=== PATIENT | female | born 1940 | race Caucasian/White ===

== ENCOUNTER 2018-02-18 16:15 | Observation (INO) | payer MEDICARE, MEDICAID, SELFPAY ==
[2018-02-18 16:27] VITALS: BMI 21.2
--- NOTE | 2018-02-18 16:33 | SW/DCPLANNER ---
Received phone call from Dr Munroe office stating patient was currently in office and would need placement. Patient is currently living on [address] with her son and nephew (nephew has stated that neither are suppose to be staying in the house). Nephew has stated in the MD office to me that patient is not capable of taking care of herself and that every opportunity she has to leave the house she does without family members knowing and has frequent moments of not being able to make it to the bathroom. Patient did have a fall last week when she took off without family knowing. Patient has stated in the office that she does agree to go somewhere because her family members can no longer live with her. Patient does have Medicaid at this time...I have faxed patient information to [facility], [facility] in [facility], and [facility].....[place] does not have any LTC beds available at this time. I will follow up with facilities in the AM.
[2018-02-18 16:57] VITALS: O2SAT 98
[2018-02-18 17:24] VITALS: BP 133/71; PULSE 76; RESP 18; TEMP 36.4; O2SAT 95
--- NOTE | 2018-02-18 17:49 | XR_ITS ---
XR chest 2V HISTORY: History of lung cancer with history of pulmonary nodules, shortness of breath ITS.REASON: hx lung cancer ORDERING PHYSICIAN: Yossi Munroe MD PATIENT AGE: 77 years COMPARISON: 08/20/2017 FINDINGS: Unremarkable heart size. Chronic coarsening of bronchovascular markings with prominence of the right hilum. No lobar consolidation or collapse. Calcified granuloma is present in the left lower lobe. No acute bony anomalies IMPRESSION: Chronic coarsening of the bronchovascular markings consistent with chronic bronchitis. There is some prominence of the right hilum inferiorly slightly more so than when compared to the previous exam. Developing hilar mass is a consideration. Consider chest CT with contrast this patient with given history of lung cancer
[2018-02-18 18:25] LABS: Basophils # 0.1 K/mm3 (0-0.2); Basophils % 0.7 % (0.1-2.0); Eosinophils # 0.2 K/mm3 (0.0-0.4); Eosinophils % 2.2 % (0.1-12.0); Hematocrit 47.5 % (37.0-47.0); Lymphocytes # 1.8 K/mm3 (0.7-4.5); Lymphocytes % 24.3 K/mm3 (10-50); Mean Corpuscular HGB Conc 31.7 g/dL (31.8-35.4); Mean Corpuscular Hemoglobin 26.4 pg (27.0-31.2); Mean Corpuscular Volume 83.4 fl (81-99); Monocytes # 0.6 K/mm3 (0.1-1.0); Monocytes % 7.6 % (1.7-9.3); Neutrophils # 4.8 K/mm3 (1.8-7.8); Neutrophils % 65.2 % (37.0-80.0); Platelet Count 148 K/mm3 (142-424); White Blood Count 7.3 K/mm3 (4.8-10.8)
[2018-02-18 18:40] LABS: Alanine Aminotransferase 8 U/L (12-78); Albumin/Globulin Ratio 0.7 (1.1-1.8); Alkaline Phosphatase 109 U/L (46-116); Anion Gap 9.3 mEq/L (5-15); Aspartate Amino Transferase 56 U/L (15-37); Bilirubin,Total 0.4 mg/dL (0.2-1.0); Blood Urea Nitrogen 15 mg/dL (7-18); Calcium 8.8 mg/dL (8.5-10.1); Carbon Dioxide 30 mmol/L (21.0-32.0); Chloride 102 mmol/L (98-107); Creatinine Clearance Estimated 47 mL/min (0-300); Creatinine,Serum 0.66 mg/dL (0.55-1.02); Estimated Glomerular Filt Rate 87 ml/min (>60); GFR (African American) 106 ML/MIN (>60); Globulin 4.2 gm/dl (1.3-3.2); Glucose 90 mg/dL (74-106); Potassium 4.3 mmoL/L (3.5-5.1); Sodium 137 mmol/L (136-145); Thyroid Stimulating Hormone 1.76 uIU/ml (0.358-3.740); Total Protein,Serum 7.2 gm/dL (6.4-8.2)
--- NOTE | 2018-02-18 19:25 | PC.NURSE ---
report given to kristy
[2018-02-18 19:37] VITALS: PULSE 71
--- NOTE | 2018-02-18 19:38 | PC.NURSE ---
report given to Loren michelle rn. alarm set and checked
[2018-02-18 19:56] LABS: Microscopic, Urine URINE MICROSCOPIC (MICROSCOPIC)
[2018-02-18 19:57] LABS: Appearance,Urine SL CLOUDY (Clear); Bilirubin,Urine Negative (Negative); Blood, Urine Negative (Negative); Color,Urine YELLOW (Yellow); Glucose,Urine (UA) Negative (Negative); Ketones,Urine Negative (Negative); Leukocyte Esterase,Urine Negative (Negative); Nitrate,Urine Negative (Negative); Protein,Urine Negative (Negative); Specific Gravity, Urine <= 1.005 (1.005-1.030); Urobilinogen,Urine 0.2 EU/dl (0.2)
[2018-02-18 20:00] VITALS: BP 104/49; PULSE 58; RESP 22; TEMP 36.5; O2SAT 93
[2018-02-18 20:03] LABS: Bacteria,Urine 4+ /lpf; WBC,Urine Occasional #/hpf (0-3)
[2018-02-19] VITALS (8 sets, daily range): BP systolic 111–129; BP diastolic 50–59; PULSE 76–93; RESP 16–22; TEMP 36.4–37.1; O2SAT 94–96
--- NOTE | 2018-02-19 02:56 | PC.NURSE ---
PT RESTED WELL THIS SHIFT. NO C/O OF PAIN. PT REMAINS CONFUSED. VSS. MEDS ADMIN PER JAN. NO OTHER CONCERNS AT THIS TIME, WILL CONT. TO MONITOR.
--- NOTE | 2018-02-19 07:29 | HMH.PHAVTE ---
[facility] VTE Monitoring - Patient Demographics Admission date: 02/18/18 Report Date: 02/19/18 Time: 07:29 Allergies/Adverse Reactions: Patient Allergies Penicillin Allergy (Intermediate, Uncoded 11/13/17 14:27) I-RASH EGGS (FOOD) Allergy (Unknown, Uncoded 11/13/17 14:27) NA-NAUSEA/VOMITING SULFA (SULFONAMIDE) Allergy (Unknown, Uncoded 11/13/17 14:27) NA-NAUSEA/VOMITING Height: 1.7 m Weight: 61.405 kg - VTE Risk Labs: VTE Related Lab Results Hgb 15.0 g/dL (12.2-16.2) 02/18/18 18:00 Hct 47.5 % (37.0-47.0) H 02/18/18 18:00 Plt Count 148 K/mm3 (142-424) 02/18/18 18:00 BUN 15 mg/dL (7-18) 02/18/18 18:00 Creatinine 0.66 mg/dL (0.55-1.02) 02/18/18 18:00 Estimated Creat Clear 47 mL/min (0-300) 02/18/18 18:00 VTE Score: 5 VTE Risk Level: Low Risk Clinical Trial Participant: No - Prophylaxis VTE Prophylaxis Ordered?: Yes Types of VTE Prophylaxis: TEDS Knee High Location of Applied Device: Bilateral Lower Extremeties
--- NOTE | 2018-02-19 07:32 | PC.NURSE ---
REPORT GIVEN TO Alfa HOLDER W/C
--- NOTE | 2018-02-19 07:43 | PC.NURSE ---
REPORT GIVEN TO Olu SHARIF RN
--- NOTE | 2018-02-19 09:28 | HMH.ACPN2 ---
Internal Medicine - PN: Subj *Date: 02/19/18 *Time: 09:28 Interval history: Basically Ms. Ramos looks like a new person today. She seems alert and oriented. She knows my name. She expresses reluctance to leave her home situation (even though it is not good). Her blood work looks good. Exam Vital signs and Labs for Last 24 Hours: Temp Pulse Resp BP Pulse Ox 97.7 F 87 20 118/59 94 L 02/19/18 08:00 02/19/18 08:00 02/19/18 08:00 02/19/18 08:00 02/19/18 08:00 Laboratory Results - last 24 hr 02/18/18 17:47: Urine Color Yellow, Urine Appearance Sl cloudy, Urine pH 6.0, Ur Specific [place] <= 1.005, Urine Protein Negative, Urine Glucose (UA) Negative, Urine Ketones Negative, Urine Blood Negative, Urine Nitrate Negative, Urine Bilirubin Negative, Urine Urobilinogen 0.2, Ur Leukocyte Esterase Negative, Urine WBC Occasional, Ur Squamous Epith Cells 3-5, Urine Bacteria 4+ 02/18/18 18:00: WBC 7.3, RBC 5.70 H, Hgb 15.0, Hct 47.5 H, MCV 83.4, MCH 26.4 L, MCHC 31.7 L, RDW 14.0, Plt Count 148, MPV 11.0 H, Neut % (Auto) 65.2, Lymph % (Auto) 24.3, [place] % (Auto) 7.6, Eos % (Auto) 2.2, Baso % (Auto) 0.7, Neut # (Auto) 4.8, Lymph # (Auto) 1.8, [place] # (Auto) 0.6, Eos # (Auto) 0.2, Baso # (Auto) 0.1 02/18/18 18:00: Sodium 137, Potassium 4.3, Chloride 102, Carbon Dioxide 30, Anion Gap 9.3, BUN 15, Creatinine 0.66, Estimated Creat Clear 47, Estimated GFR 87, Est GFR ( Amer) 106, Glucose 90, Calcium 8.8, Total Bilirubin 0.4, AST 56 H, ALT 8 L, Alkaline Phosphatase 109, Total Protein 7.2, Albumin 3.0 L, Globulin 4.2 H, Albumin/Globulin Ratio 0.7 L, TSH 1.76 Laboratory Tests 02/18/18 02/18/18 18:00 18:00 WBC 7.3 Sodium 137 Potassium 4.3 Chloride 102 BUN 15 Creatinine 0.66 I & O for Last 24 hours: Intake & Output 02/16/18 02/17/18 02/18/18 02/19/18 11:59 11:59 11:59 11:59 Intake Total 840 / 840 Balance 840 / 840 Weight 135 lb 6 oz Microbiology Reports for the Last 24 Hours: Microbiology 02/18/18 17:47 Urine,Clean Catch Urine Culture - Preliminary - Constitutional no acute distress - *Routine HEENT Exam Eye: Present: PERRL ENT: Present: mucous membranes moist - *Routine Respiratory Exam Present: decreased breath sounds Comments: Scattered rhonchi and wheezes, more prominent in the right base. 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 Continue treatment. She really needs placemnent. Case management involved.
--- NOTE | 2018-02-19 09:31 | P.PN_ITS ---
Internal Medicine - PN: Subj *Date: 02/19/18 *Time: 09:28 Interval history: Basically Ms. Ramos looks like a new person today. She seems alert and oriented. She knows my name. She expresses reluctance to leave her home situation (even though it is not good). Her blood work looks good. Exam Vital signs and Labs for Last 24 Hours: Temp Pulse Resp BP Pulse Ox 97.7 F 87 20 118/59 94 L 02/19/18 08:00 02/19/18 08:00 02/19/18 08:00 02/19/18 08:00 02/19/18 08:00 Laboratory Results - last 24 hr 02/18/18 17:47: Urine Color Yellow, Urine Appearance Sl cloudy, Urine pH 6.0, Ur Specific [place] <= 1.005, Urine Protein Negative, Urine Glucose (UA) Negative, Urine Ketones Negative, Urine Blood Negative, Urine Nitrate Negative, Urine Bilirubin Negative, Urine Urobilinogen 0.2, Ur Leukocyte Esterase Negative , Urine WBC Occasional, Ur Squamous Epith Cells 3-5, Urine Bacteria 4+ 02/18/18 18:00: WBC 7.3, RBC 5.70 H, Hgb 15.0, Hct 47.5 H, MCV 83.4, MCH 26.4 L , MCHC 31.7 L, RDW 14.0, Plt Count 148, MPV 11.0 H, Neut % (Auto) 65.2, Lymph % (Auto) 24.3, [place] % (Auto) 7.6, Eos % (Auto) 2.2, Baso % (Auto) 0.7, Neut # ( Auto) 4.8, Lymph # (Auto) 1.8, [place] # (Auto) 0.6, Eos # (Auto) 0.2, Baso # (Auto ) 0.1 02/18/18 18:00: Sodium 137, Potassium 4.3, Chloride 102, Carbon Dioxide 30, Anion Gap 9.3, BUN 15, Creatinine 0.66, Estimated Creat Clear 47, Estimated GFR 87, Est GFR ( Amer) 106, Glucose 90, Calcium 8.8, Total Bilirubin 0.4, AST 56 H, ALT 8 L, Alkaline Phosphatase 109, Total Protein 7.2, Albumin 3.0 L, Globulin 4.2 H, Albumin/Globulin Ratio 0.7 L, TSH 1.76 Laboratory Tests 02/18/18 02/18/18 18:00 18:00 WBC 7.3 Sodium 137 Potassium 4.3 Chloride 102 BUN 15 Creatinine 0.66 I & O for Last 24 hours: Intake & Output 02/16/18 02/17/18 02/18/18 02/19/18 11:59 11:59 11:59 11:59 Intake Total 840 / 840 Balance 840 / 840 Weight 135 lb 6 oz Microbiology Reports for the Last 24 Hours: Microbiology 02/18/18 17:47 Urine,Clean Catch Urine Culture - Preliminary - Constitutional no acute distress - *Routine HEENT Exam Eye: Present: PERRL ENT: Present: mucous membranes moist - *Routine Respiratory Exam Present: decreased breath sounds Comments: Scattered rhonchi and wheezes, more prominent in the right base. 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
--- NOTE | 2018-02-19 10:47 | HMH.PTEV ---
Physical Therapy Evaluation Rehab PT IP Evaluation Start: 02/19/18 10:16 Freq: ONCE Status: Active Protocol: Document 02/19/18 10:37 [email or web address] (Rec: 02/19/18 10:46 [email or web address] [id number]) Subjective/History History History This is the initial PT evaluation for Yocasta Agustin. PT is a 77 y/o female admitted to [facility] from home. PT is pleasantly confused Subjective Subjective no complaints Rehab PT IP Eval Objective Appearance Patient Behavior Appropriate Patient Orientation Person Place Difficulty following instructions none Speech Pattern Clear Ambulation Patient Able to Ambulate Yes Ambulation Observation IP General Gait Pattern Observation Narrow Based Gait Shuffling Step Ambulation Distance (feet) 50 Ambulation Assistive Device None Balance Ability to Arise Able, uses arms to help Sitting Balance Steady, safe Standing Balance Unsteady Dynamic Sitting Balance Ability Fair Dynamic Standing Balance Ability Poor Transfers Sit to Stand Chair Transfer Ability Supervision/Stand by ROM All Extremities PT ROM Status WFL MMT All Extremities PT MMT WFL Rehab PT IP prob,goals,plan Problems Date of Evaluation: 02/19/18 PT IP Problems Transfers Gait Balance Rehab Potential Rehab Potential Fair Equipment Needs Assistive Devices Rolling / Wheeled Walker Plan PT Intervention Plan Transfers Gait Balance PT Plan Frequency BID Duration LOS Discharge Goals Bed Transfer Ability Supervision/Stand by Sit to Stand Chair Transfer Ability Supervision/Stand by Ambulation Assistive Device Rolling Walker Ambulation Distance (feet) 50 Discharge Plan PT Discharge Plan Pt to need LTC placement for mental status G -code Required Yes Eval Complexity Eval Charge Codes 08028 - Moderate Complexity G Codes PT Current Status Mobility PT Current Status Modifier CJ-At least 20% but less than 40% impaired, limited or restricted PT Goal Status Mobility PT Goal Status Modifer CJ-At least 20% but less than 40% impaired, limited or
--- NOTE | 2018-02-19 13:45 | SW/DCPLANNER ---
Addendum entered by [facility] 02/19/18 18:48: Patient information has also been faxed to [facility] per hema request whom lives in [place]...I will follow up with Aiden Morocho in the AM. Marilou= Leatha Hardin [phone] Original Note: Addendum entered by [facility] 02/19/18 16:21: [facility] is reviewing this patients information and stated that due to patients CAMILA having a QMB she would have to be private pay....Melissa was unable to answer various different questions regarding this situation and asked that I call back in the AM and speak with Julián. Also I have contacted APS office and granulizing machine operator has stated that this patient does have an open APS case with [facility] ([phone]). I have attempted to contact [facility] several times today and I have left to . I will continue to contact [facility] to discuss placement for this patient. Original Note: Addendum entered by [facility] 02/19/18 16:01: Patient information has also been faxed to [facility] ([place]) and [facility] ([place]) at this time.....[facility] has denied referral at this time. I have also left a voicemail with admission coordinators at [place], [facility], [facility], and the [facility]. [facility] and [place] do NOT have beds available at this time. Nephew has stated that [facility] would be fine since patients son works in that area. I have also attempted to contact [facility] and Alexandra with [facility] to see if this patient has an open case due to nephew stating there has been a social security specialist involved recently. Original Note: Patient information has been faxed to [facility] (no beds available), [facility] ( can NOT meet patients needs at this time), [facility], [facility], and [facility]. I will follow up with patient and patients family once bed is obtained for this patient.
--- NOTE | 2018-02-19 15:17 | PC.NURSE ---
PT IS SITTING UP IN THE CHAIR WATCHING TV AT THIS TIME, NO COMPLAINTS OF DISCOMFORT, PT HAS ALARM ATTACHED TO GOWN B/C ON OCCASION SHE GETS CONFUSED. PT HAS BEEN AMBULATING IN THE ROOM AND TO THE BATHROOM WITH 1 ASSIST. LUNG SOUNDS CLEAR, BOWEL SOUNDS NORMAL. EATING WELL, WILL CONTINUE TO MONITOR.
[2018-02-20] VITALS (7 sets, daily range): BP systolic 107–128; BP diastolic 48–58; PULSE 70–89; RESP 14–20; TEMP 36.8–36.9; O2SAT 96–98; BMI 21.2
--- NOTE | 2018-02-20 04:42 | PC.NURSE ---
Pt rested custodial through the shift well then woke up and stated I cant sleep I want to get up Pt ambulated to chair and pt continues to pull of alarm and get out of the chair after being educated to remain in chair. Pt is alert to person and place. Fine crackles noted in elma. lower lobes. BS active in all 4 qauds. VSS. No acute distress noted. Will continue to monitor.
[2018-02-20 06:16] LABS: Vitamin B12 1070 pg/mL (232-1245)
--- NOTE | 2018-02-20 07:14 | PC.NURSE ---
report given to colten jara
--- NOTE | 2018-02-20 07:18 | PC.NURSE ---
REPORT GIVEN TO Jasper CONTRERAS W/C
--- NOTE | 2018-02-20 08:21 | HMH.ACPN2 ---
Internal Medicine - PN: Subj *Date: 02/20/18 *Time: 08:21 Interval history: Patient is confused this morning. She states she has to leave to go walking. Denies any pain. She states she did sleep and ate most of her breakfast. Exam Vital signs and Labs for Last 24 Hours: Temp Pulse Resp BP Pulse Ox 98.3 F 80 20 128/56 96 02/20/18 07:34 02/20/18 07:34 02/20/18 07:34 02/20/18 07:34 02/20/18 07:34 Laboratory Results - last 24 hr 02/18/18 18:00: Vitamin B12 1070 I & O for Last 24 hours: Intake & Output 02/17/18 02/18/18 02/19/18 02/20/18 11:59 11:59 11:59 11:59 Intake Total 840 / 840 480 / 480 Output Total 200 / 200 Balance 840 / 840 280 / 280 Weight 135 lb 6 oz Microbiology Reports for the Last 24 Hours: Microbiology 02/18/18 17:47 Urine,Clean Catch Urine Culture - Preliminary - Constitutional no acute distress (confused) - *Routine Respiratory Exam Present: CTA bilaterally - *Routine Cardiovascular Exam Present: irregularly irregular - *Routine Abdominal Exam Present: soft, normoactive bowel sounds. 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 Status: Chronic Category: Medical Code(s): R53.81 - Other malaise (3) COPD (chronic obstructive pulmonary disease) Current visit: Yes Status: Chronic Qualifiers: COPD type: unspecified COPD Qualified Code(s): J44.9 - Chronic obstructive pulmonary disease, unspecified Category: Medical Code(s): J44.9 - Chronic obstructive pulmonary disease, unspecified (4) H/O: lung cancer Current visit: Yes Status: Acute Category: Medical Code(s): Z85.118 - Personal history of other malignant neoplasm of bronchus and lung - Assessment and plan all Dx Assessment and Plan for all problems:: Will discuss placement with care management.
--- NOTE | 2018-02-20 11:58 | SW/DCPLANNER ---
I have made contact with APS worker (Gwen)...both workers have stated that patients son is very difficult to contact and be compliant. Workers have stated that they intend on making a home visit with patient hopefully one evening this week....if this is a fail and son continues to be noncompliant then APS workers will file petition for guardianship. Both workers along with police service technician have stated that this patient can NOT return home due to being unsafe. I have informed [facility] of this being they are the only alf interested in this patient with the possibility of [facility]. I will continue to make contact with workers, patients family, and [facility]. At this time we will have to wait for home visit by APS workers. [facility] information is with [facility], [facility], [facility], and [facility].
--- NOTE | 2018-02-20 16:47 | PC.NURSE ---
PATIENT HAS HAD AN OKAY DAY. SHE HAS BEEN CONFUSED THIS SHIFT. HAS ATTEMPTED TO WANDER AT TIMES. ALARM REMAINS ON PATIENT. HAS GOTTEN AGITATED A COUPLE OF TIMES BUT IS EASILY REDIRECTED. SHE WALKS WELL WITH ASSISTANCE. NO COMPLAINTS OF ANY PAIN. VSS WILL CONTINUE TO MONITOR.
--- NOTE | 2018-02-20 18:39 | SW/DCPLANNER ---
I have spoke with patients son this evening, Dyllan. Dyllan is agreeing to be able to sign paperwork for this patient to go to [facility]....however Dyllan works in [facility] till 4PM. Dyllan has agreed that nephew can transport patient to [facility] then Dyllan would come after work and sign paperwork. I will discuss this in the AM with Alessia to see if this plan will workout....if not then we will have to wait till Sunday for placement at [facility].
--- NOTE | 2018-02-20 19:17 | PC.NURSE ---
report given to christine black
[2018-02-21 04:00] VITALS: BP 112/57; PULSE 81; RESP 20; TEMP 36.9; O2SAT 96
--- NOTE | 2018-02-21 04:51 | PC.NURSE ---
A&OX3 THIS SHIFT BUT MADE INAPPROPRIATE CONVERSATIONS WITH STAFF, PARANOID AND UNCOOPERATIVE WITH CARE AT TIMES. PT MADE COMMENTS SUCH WHAT DID YOU ALL DO WITH DOG THAT WAS IN HERE? STAFF REORIENTED PT AND STATED ON LOCATION AND INFORMED PT THAT THERE WAS NOT A DOG IN THIS FACILITY. ALSO PT PORTRAYED PARANOID BEHAVIOR WITH MEDICATION ADMINISTRATION. PT MADE STATEMENTS DURING MEDICATION ADMINISTRATION YOU ARE TRYING TO MAKE ME SICK WITH THAT STUFF. RN EDUCATED PT ON BENEFITS/RISKS OF MEDICATIONS, PT ACCEPTED ADMINISTRATION OF MEDS FOLLOWING PROVIDED EDUCATION. PT ATTEMPTED TO GET UP TO AMBULATE W/O NOTIFY STAFFING FOR ASSISTANCE FOLLOWING INSTRUCTION. SAFETY DEVICE APPLIED T/O SHIFT. PT DID AMBULATE IN [place] WITH STANDBY ASSISTANCE OF STAFF AND TOLERATED WELL. SLEPT IN INTERVALS THIS SHIFT. VSS. WILL CONTINUE TO MONITOR.
[2018-02-21 06:27] VITALS: PULSE 84; PULSE 85
[2018-02-21 07:41] VITALS: BP 128/60; PULSE 64; RESP 20; TEMP 36.8; O2SAT 93
--- NOTE | 2018-02-21 08:35 | P.PN_ITS ---
Internal Medicine - PN: Subj *Date: 02/21/18 *Time: 08:34 Interval history: Patient states she is feeling slightly better today. She denies any pain. She seems more alert today. She states she has off and on throughout the night and did eat most of her breakfast. Exam Vital signs and Labs for Last 24 Hours: Temp Pulse Resp BP Pulse Ox 98.3 F 64 20 128/60 93 L 02/21/18 07:41 02/21/18 07:41 02/21/18 07:41 02/21/18 07:41 02/21/18 07:41 Laboratory Results - last 24 hr 02/18/18 17:47: Urine Color Yellow, Urine Appearance Sl cloudy, Urine pH 6.0, Ur Specific [place] <= 1.005, Urine Protein Negative, Urine Glucose (UA) Negative, Urine Ketones Negative, Urine Blood Negative, Urine Nitrate Negative, Urine Bilirubin Negative, Urine Urobilinogen 0.2, Ur Leukocyte Esterase Negative , Urine WBC Occasional, Ur Squamous Epith Cells 3-5, Urine Bacteria 4+ I & O for Last 24 hours: Intake & Output 02/18/18 02/19/18 02/20/18 02/21/18 11:59 11:59 11:59 11:59 Intake Total 840 / 840 480 / 480 1050 / 1050 Output Total 200 / 200 1300 / 1300 Balance 840 / 840 280 / 280 -250 / -250 Weight 135 lb 6 oz 135 lb 5.998 oz Microbiology Reports for the Last 24 Hours: Microbiology 02/18/18 17:47 Urine,Clean Catch Urine Culture - Preliminary Gram Positive Cocci - Constitutional no acute distress - *Routine Respiratory Exam Present: CTA bilaterally - *Routine Cardiovascular Exam Present: RRR - *Routine Abdominal Exam Present: soft, normoactive bowel sounds. 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 Status: Chronic Category: Medical Code(s): R53.81 - Other malaise (3) COPD (chronic obstructive pulmonary disease) Current visit: Yes Status: Chronic Qualifiers: COPD type: unspecified COPD Qualified Code(s): J44.9 - Chronic obstructive pulmonary disease, unspecified Category: Medical Code(s): J44.9 - Chronic obstructive pulmonary disease, unspecified (4) H/O: lung cancer Current visit: Yes Status: Acute Category: Medical Code(s): Z85.118 - Personal history of other malignant neoplasm of bronchus and lung - Assessment and plan all Dx Assessment and Plan for all problems:: Awaiting placement for the patient.
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
--- NOTE | 2018-02-21 13:13 | SW/DCPLANNER ---
Patient has been accepted to [facility] and will discharge to their facility this afternoon with nephew (Brando).
--- NOTE | 2018-02-21 13:23 | PC.NURSE ---
Pt standing beside chair stating she has to pee. Upon inspection pt had voided on chux. Foul odor noted to urine. Pt place on commode, unable to void at this time. Pt vinayak area cleaned and new gown in place. Pt assisted back to chair using hand held assist. Pull away alarm in place. Call light within reach.
[2018-02-21 13:57] VITALS: PULSE 83; PULSE 85
== END 2018-02-21 14:20 ==
PROVIDERS: Admitting Provider Family Medicine; PCP Family Medicine; Visit Provider Family Medicine
DX: G30.1 Alzheimer's disease with late onset (principal); F02.81 Dementia in other diseases classified elsewhere, unspecified severity, with behavioral disturbance; J44.9 Chronic obstructive pulmonary disease, unspecified; Z85.118 Personal history of other malignant neoplasm of bronchus and lung; Z91.83 Wandering in diseases classified elsewhere; Z79.82 Long term (current) use of aspirin; Z79.51 Long term (current) use of inhaled steroids; Z79.899 Other long term (current) drug therapy; Z88.0 Allergy status to penicillin; Z88.2 Allergy status to sulfonamides; Z91.012 Allergy to eggs
CPT/HCPCS: 71046; 80053; 81001; 82607; 84443; 85025; 87086; 87088; 93005; 94640; 97116; 97162; G0378